=== PATIENT | female | born 1995 | race Caucasian/White ===

== ENCOUNTER 2025-07-06 01:16 | Emergency (ER) | payer OTHER ==
[2025-07-06] MEDS: KETOROLAC 15MG/ML VIAL IM ONE (02:07)
[2025-07-06] MEDS ORDERED: NAPR-1176 MT (02:20)
[2025-07-06] MEDS ORDERED: OFLO5DRO4 RIGHT EAR (02:20)
[2025-07-06 02:29] VITALS: BP 112/70; PULSE 100; RESP 18; TEMP 36.7; O2SAT 99
== END 2025-07-06 02:30 | disposition home or self-care (01) ==
LOC: ER 01:16
DX: H60.91 Unspecified otitis externa, right ear (principal); Z79.1 Long term (current) use of non-steroidal anti-inflammatories (NSAID)
CPT/HCPCS: 99283; 81025; 96372; J1885